=== PATIENT | female | born 1960 | race Caucasian/White ===

== ENCOUNTER 2018-04-04 12:15 | Emergency (ER) | payer OTHER ==
[~2018-04-04] VITALS: Ht 170.2 cm; Wt 93.9 kg
[2018-04-04 12:40] VITALS: Ht 170.2 cm; Wt 93.9 kg
[2018-04-04 15:32] LABS: CALCIUM 8.8 mg/dL (8.5-10.1); CARBON DIOXIDE 28.9 mmol/L (21-32); CHLORIDE SERUM 103 mmol/L (98-107); GFR1 > 60 mL/min; GLUCOSE SERUM 352 mg/dL (74-106); POTASSIUM SERUM 4.6 mmol/L (3.5-5.1); SODIUM SERUM 137 mmol/L (136-145)
[2018-04-04 15:36] LABS: ALKALINE PHOSPHATASE 194 U/L (46-116); ALT/SGPT 74 U/L (14-59); AST/SGOT 24 U/L (15-37); BASOPHIL % 0.4 % (0-2); BILIRUBIN TOTAL 0.2 mg/dL (0.20-1.00); PLATELET COUNT 226 x10^3mcL (130-400); RED CELL DISTRIBUTION WIDTH 12.6 % (11.5-14.5)
[2018-04-04 15:37] LABS: ALBUMIN 2.4 g/dL (3.4-5.0)
[2018-04-04 18:32] VITALS: BP 150/71
== END 2018-04-04 18:32 | disposition short-term general hospital (02) ==
LOC: ED 12:15
PROVIDERS: Emergency Medicine
DX: H54.62 Unqualified visual loss, left eye, normal vision right eye (principal); H35.62 Retinal hemorrhage, left eye; E11.319 Type 2 diabetes mellitus with unspecified diabetic retinopathy without macular edema
CPT/HCPCS: 36415; 82962